=== PATIENT | male | born 1965 | race Caucasian/White ===

== ENCOUNTER → 2020-12-21 11:14 | Outpatient (CLI) | payer OTHER, SELFPAY ==
[2020-12-21 09:30] VITALS: BMI 22.0
--- NOTE | 2020-12-21 11:19 | CT_ITS ---
STUDY: CT CHEST WITH CONTRAST REASON FOR EXAM: Male, 55 years old. SCC of lung, concern for progression prior to XRT -- evaluate extent of disease RADIATION DOSAGE (If Supplied By Facility): CTDIvol = ( 10.73 ) mGy, DLP = ( 318.33 ) mGycm TECHNIQUE: Transaxial imaging was performed following intravenous administration of IV 100mL Isovue-370. Multiplanar coronal and sagittal images were reformatted. Individualized dose optimization techniques were used for this CT. COMPARISON: Comparison is made with prior outside examination dated 12/18/2020. FINDINGS: Prominent bilateral axillary lymph nodes more prominent on the left side. The largest lymph node in the left axilla measures 1.1 cm. There is volume loss and collapse of the right lower lobe. There is narrowing of the right intermediate stem bronchus due to the mass in the subcarinal region as well as in the right infrahilar region. There is hyperexpansion of the left lung. Normal heart and pericardium. There is evidence of a large soft tissue prominence in the subcarinal region extending into the right hilum and right infrahilar region. Normal hilar regions. Normal enhanced pulmonary arteries. Normal aorta arch and descending thoracic aorta. There are multi-level degenerative changes of the thoracic spine. There is a 1.5 cm cyst in the posterior lateral aspect of the left kidney. CT/Chest WITH Contrast IMPRESSION: Slight prominence of the axillary lymph nodes bilaterally worse on the left side. Mediastinal soft tissue prominence in the subcarinal region extending into the right hilar and infrahilar region with collapse of the right lower lobe and narrowing of the right intermediate stem bronchus. Electronically Signed: Malick Jaeger MD at 12:18 EDT , Service support ,
[2020-12-21 11:30] LABS: CREATININE FINGERSTICK 0.8 mg/dL (0.70-1.30); EGFR FINGERSTICK > 60.0000 mL/min (>60)
== END ==
PROVIDERS: Referring Provider Student in an Organized Health Care Education/Training Program; Visit Provider Student in an Organized Health Care Education/Training Program
DX: Z01.812 Encounter for preprocedural laboratory examination (principal); C34.91 Malignant neoplasm of unspecified part of right bronchus or lung
CPT/HCPCS: 71260; Q9967; A4216

== ENCOUNTER 2020-12-22 14:00 | Outpatient (RCR) | payer OTHER, SELFPAY ==
[2020-12-21 09:30] VITALS: BMI 22.0
[2020-12-22 09:14] VITALS: BMI 22.0
== END 2021-01-13 23:59 ==
LOC: NS 14:00
PROVIDERS: Visit Provider Student in an Organized Health Care Education/Training Program
DX: Z71.3 Dietary counseling and surveillance (principal); R63.4 Abnormal weight loss; R13.10 Dysphagia, unspecified; C34.91 Malignant neoplasm of unspecified part of right bronchus or lung; Z93.1 Gastrostomy status
CPT/HCPCS: 97802; 97803

== ENCOUNTER 2020-12-25 10:41 | Day surgery (SDC) | payer OTHER, SELFPAY ==
[2020-12-22 15:42] VITALS: BMI 21.9
[2020-12-24 09:27] VITALS: BMI 21.9
[2020-12-25] VITALS (8 sets, daily range): BP systolic 105–113; BP diastolic 51–74; PULSE 71–93; RESP 16; TEMP 36.4–36.8; O2SAT 92–95; BMI 21.4
--- NOTE | 2020-12-25 10:48 | HP.PCM_ITS ---
History and Physical Date of Admission: 12/25/20 Intake Vital Signs 12/22/20 09:13 12/22/20 09:14 Height 5 ft 9.5 in Weight: 153 lb BMI 22.2 22.0 BP 129/67 H Blood Pressure Location Rt brachial Position Sitting Respiration 18 Intake Visit Reasons: PORT PLACEMENT CONSULT Chief Complaint: port placement Legal Department Manager Required: No Is patient in pain?: No Allergies No Known Allergies Allergy (Verified 12/22/20 09:14) Medications lisinopril 10 mg tablet 10 mg PO DAILY 12/15/20 [History Confirmed 12/22/20] acetaminophen 500 mg/15 mL oral liquid 500 mg PO ONCE 12/17/20 [History Confirmed 12/22/20] lactose-reduced food with fiber 0.06 gram-1.5 kcal/mL oral liquid ml PO 12/17/20 [History Confirmed 12/22/20] oxycodone 5 mg/5 mL oral solution 5 mg PO Q4H PRN 12/17/20 [History Confirmed 12/22/20] PFSH Medical History Back pain Dysphagia Essential hypertension, benign Liver lesion, right lobe Pelvis fracture (~2015) Regional lymph node metastasis present Weight loss, abnormal Surgical History History of shoulder surgery (~1999) PEG (percutaneous endoscopic gastrostomy) status Family History Mother Diabetes Sister Uterine cancer Social History adopted: No housing: house Smoking Status: Former smoker Tobacco: How many years used: 30 second hand exposure: No alcohol intake: never seatbelt use: always HPI HPI HPI: LEYDI MAXWELL, is a 55 M who presents to the office today for left chest port placement. The patient has a right non-small cell carcinoma of the lung. Patient is about to undergo radiation as well as chemotherapy. ROS General General: Yes weight change and fatigue; No appetite, colon cancer, breast cancer or weakness HEENT HEENT: Yes difficulty swallowing; No eye injury, eye surgery, swollen glands or hoarseness Endo Endocrine: No thyroid disease, diabetes mellitus, thyroid cancer, Hair loss, heat intolerance or cold intolerance Skin Skin: No rash or changing moles Breast Breast: No left breast lump, right breast lump, nipple discharge, breast pain, abnormal mammogram, abnormal US or breast enlargement Musc Musculoskeletal: No back problems, arthritis, rheumatoid arthritis, gout or joint pain Cardio Cardiovascular: Yes high blood pressure; No murmur, pacemaker, heart disease, atrial fibrillation, heart attack, heart stent, palpitations, shortness of breat with exertion or chest pain Psych Psychiatric: No depression, anxiety or hearing voices Resp Respiratory: Yes shortness of breath, No sleep apnea, No cough, No COPD, No asthma, No emphysema and No wheezing Gastro Gastrointestinal: Yes abdominal pain, No nausea or vomiting, Yes diarrhea, No constipation, No blood in stool, No acid reflux, No hemorrhoids, No ulcers, No gallbladder problem and No black,tarry stools Stiven Hematologic: No blood thinners, No blood disorders, No bleeding, No anemia and No blood clots Neuro Neurologic: No system reviewed and no additional complaints, except as documented, No as per HPI, No abnormal gait, No abnormal hearing, No abnormal movements, No abnormal speech, No behavioral changes, No burning sensations, No confusion, No convulsions, No disequilibrium, No dizziness, No localized weakness, No frequent falls, No headache(s), No lack of coordination, No loss of vision, No memory loss, No numbness, No other visual disturbances, No radicular pain, No restless legs, No sensory deficit, No syncope, No tingling, No tremor(s), No weakness and No other Exam Const General: cooperative Orientation: alert and oriented x3 HENMS Head: normal to inspection Neck Neck: normal visual inspection and full ROM Chest Chest palpation & inspection: normal inspection of the chest Resp Effort & Inspection: normal respiratory effort Auscultation: clear to auscultation bilaterally Cardio Rate: regular rate Rhythm: regular rhythm GI Inspection: non-distended Palpation: soft and nontender Skin General: no rashes or lesions noted Neuro General: patient alert and patient oriented x3 Extrem General: full ROM Psych Appearance: grossly normal Mental Status: mental status grossly normal Assessment and Plan Assessment and Plan (1) Squamous cell carcinoma of right lung: Status: Acute (2) Encounter for insertion of venous access port: Status: Acute Plan - Dr. Adolfo Meyers MD: The patient requires port placement for chemotherapy. I discussed the left chest port placement due to the patient's right side tumor requiring radiation. I discussed the port placement in detail with the patient. I discussed the risks of bleeding, infection, pneumothorax, line infection or DVT. The patient understands the risks and is willing to proceed with port placement. Adolfo Meyers MD Pager: [facility] [address] [place] [address], [address] [place] [address] Office: I have re-examined the patient. There are no clinical changes since date of exam.
[2020-12-25] MEDS: Lactated Ringers 1,000 ML 100 ML IV (11:58)
[2020-12-25] MEDS: Cefazolin 2 GM in 0.9% Normal Saline 100 ML IV (12:30)
[2020-12-25] MEDS: Bupiv/Epi 0.25% 30 ML Vial (12:46)
--- NOTE | 2020-12-25 13:16 | RAD_ITS ---
STUDY: X-RAY CHEST REASON FOR EXAM: Male, 55 years old. Line placement -- in pacu TECHNIQUE: Single AP portable view of the chest. COMPARISON: None. FINDINGS: The left-sided jefferson catheter has been placed. The tip is at the junction of the superior vena cava and right atrium. Mild increased markings at the right lung base. Findings suggestive of volume loss in the right lower lobe. There is no demonstrated pleural abnormality. Normal size heart. Normal mediastinum and kait. Normal visualized pulmonary arteries. There is atherosclerotic tortuosity of the aortic arch and descending thoracic aorta. Normal visualized thoracic spine. Normal visualized ribs, clavicles, and shoulders. There is no demonstrated abnormality of the visualized soft tissue structures of the upper abdomen. RAD/CXR for Line Placement IMPRESSION: The tip of the left jefferson catheter is at the junction of the superior vena cava and right atrium. Findings suggestive of volume loss in the right lower lobe. Electronically Signed: Malick Jaeger MD at 13:59 EDT , Service support ,
--- NOTE | 2020-12-25 13:16 | PCM.OPRPT ---
Problems Associated Problem List Diagnoses (1) Malignant neoplasm of lower lobe, right bronchus or lung: (2) Encounter for insertion of venous access port: Report of Operation Date of Procedure: 12/25/20 Pre-Operative Diagnosis: Need for vascular access port due to lung cancer Post-Operative Diagnosis: Same Surgery/Procedure Performed:: Ultrasound and fluoroscopy guided left chest port placement utilizing left IJ Description of Procedure: After obtaining informed consent patient was brought back to the operating room MAC anesthesia was induced and the left chest and neck were prepped in normal sterile fashion. Ultrasound was used to evaluate both IJs and the left IJ was selected. Next, using a needle, the left IJ was accessed and a guidewire was passed on into the superior vena cava under fluoroscopy guidance. A small incision was made over the puncture site and the dilator introducer was placed over the guidewire. Next this was capped and the pocket was made for the port. 1% lidocaine with epinephrine was injected in the proposed port site. An incision was made with scalpel. Electrocautery was used to make a pocket under the skin and subcutaneous tissue. Hemostasis was obtained. Next, the catheter was tunneled up to the neck incision site and placed through the introducer. The peel-away introducer was removed and the position of the catheter was confirmed on fluoroscopy. Next, the catheter was trimmed and attached to the port with the locking device. Interrupted 2-0 Vicryl sutures were used to anchor the port to the chest wall and then the port was placed inside the pocket. The pocket was then flushed with saline and the port irrigated with saline. There was good blood return and the port flushed easily. Next, heparin was injected into the port. The skin was closed with subcutaneous interrupted 3-0 Vicryl sutures. A single 3-0 Vicryl sutures placed under the skin at the neck incision site. Steri-Strips were placed as well as op sites. Patient tolerated procedure well, was taken to PACU in stable condition. Chest x-ray will be obtained. Grafts/Implants Used: 8 Cam[place]onian PowerPort Admit VTE Documentation VTE Mechan Device Prophylaxis: SCD's
--- NOTE | 2020-12-25 13:17 | EX.PCM.DISCH ---
Discharge Instructions Procedure Port-A-Cath Diet Discharge Diet: Light diet - advance as tolerated (Pain medication may cause nausea. You should typically eat light foods as you take your pain medication.) Activity Discharge Activity: Return to Normal Activity and May Shower (with your bandage in place in 1-2 days after surgery. DO NOT SHOWER WHEN YOUR PORT IS ACCESSED.) Dressing / Incision Call your doctor if your incision/area has: Continuous Slow Oozing, Sudden Increased Bleeding, Increased Pain/ Swelling, Increased Redness, Foul Smelling Discharge and Swelling at the incision site Call your doctor if you observe: Fever of 101 or Higher Remove Dressing in: 2 days Cleanse incision/area with: Soap & Water Follow Up Care Please Follow Up With: Adolfo Meyers MD When: as needed or if there are any issues. [phone] Test Results: Test results from this visit will be discussed in further detail at your follow-up appointment, if applicable. Discharge Plan Admission Attending Provider: Adolfo Meyers Discharge Orders/Prescriptions Prescriptions: No Action lisinopril 10 mg tablet 10 mg PO DAILY RF: 0 oxycodone 5 mg/5 mL solution 5 mg PO Q4H PRN (Reason: Pain) RF: 0 acetaminophen 500 mg/15 mL liquid 500 mg PO ONCE PRN (Reason: Pain) RF: 0 Jevity 1.5 Tesfaye 0.06 gram-1.5 kcal/mL liquid 290 ml PO .5 TIMES DAILY RF: 0 prochlorperazine maleate 10 mg tablet 10 mg PO Q6H PRN (Reason: nausea and vomiting) Qty: 30 RF: 2 ondansetron 8 mg tablet,disintegrating 8 mg PO Q8H PRN (Reason: nausea and vomiting) Qty: 30 RF: 2 lidocaine-prilocaine 2.5-2.5 % cream 1 applic topical ONCE PRN (Reason: port access ) 30 Days Qty: 30 RF: 2 Referrals / Follow Up: LAYLA DUMAS [Other] Disposition Disposition (needs filled in before D/C Order can be placed): Home, self care
== END 2020-12-25 14:20 | disposition home or self-care (01) ==
LOC: SDC 10:43 → AC 10:45
PROVIDERS: Referring Provider Surgery; Visit Provider Surgery
PROC: (CPT 36561; principal; 2020-12-25 12:05)
DX: Z45.2 Encounter for adjustment and management of vascular access device (principal); C34.31 Malignant neoplasm of lower lobe, right bronchus or lung; I10 Essential (primary) hypertension; Z87.891 Personal history of nicotine dependence
CPT/HCPCS: 36561; 71045; 77001; J7120; C1788

== ENCOUNTER 2021-02-16 12:30 | Outpatient (RCR) | payer OTHER, SELFPAY ==
[2021-01-14 09:41] VITALS: BMI 22.0
[2021-01-21 09:50] VITALS: BMI 21.2
--- NOTE | 2021-01-26 17:36 | HP.SP.AD_ITS ---
History - History Date of Eval: 01/26/21 Medical Diagnosis (from RX): Malignant neoplasm of lower lobe, right bronchus or lung (C34.31) Date of Onset of Diagnosis: 11/30/2020 Previous speech therapy: No Other Relevant Medical History/Diagnoses/Surgery: PMH: Acid reflux, Back pain, Chest pain, Collapsed lung, Difficulty chewing, Dysphagia, HTN, Former smoker, Liver lesion right lobe, Migraine headache, Pelvis fracture (~2015), Port-A-Cath in place, Regional lymph node metastasis present, Wears glasses, Weight loss abnormal, History of shoulder surgery (~1999), PEG status. 55-year-old ex- smoker presenting with progressive dysphagia and 30-pound weight loss. PET/CT on 11/30/2020 demonstrate hypermetabolic right lower lobe mass with hypermetabolic mediastinal and right hilar lymph node conglomeration. Right middle lobe bronchus obstruction/occlusion noted. 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 The patient began chemoradiation on 12/31/20 and will continue radiation through 02/15/21 and chemo through 02/11/21. He then will have a month break before proceeding with more chemotherapy. The patient stated that at the start of the year he began to have swallowing difficulty with dry textures (e.g. donut). His swallow became progressively worse. On 11/29/2020 he was admitted to the [facility] and could only swallow liquid medications and small pills. He was on TPN in the meantime. He had PEG tube placed 12/09/2020. He began chemoradiation 12/31/20. He reported some of his treatments have been delayed due to complications, including a lung collapse. He had difficulty managing secretions, feeling that he had retention in his thoracic esophagus. He experienced dysgeusia during chemoradiation. He has begun consuming regular textures for the past week and reports good tolera nce at this time. He is currently consuming 2-4 cartons via PEG daily to supplement his po intake. Smoking Status: Former smoker Hx Smoking Cessation Date: 10/23/20 Hx Tobacco Use: Yes - Pain Is pain an issue with your current prescribed condition?: No - Personal Occupation: Retired - [employer]. Right Hearing Abillity: Normal Left Hearing Abillity: Normal Visual Assistive Devices: Glasses Patient Allergies - Allergies Allergies No Known Allergies Allergy (Verified 07/08/21 09:22) Subjective Dysphagia - Symptoms Reported Symptoms/Problems with: Difficulty Swallowing Solids, Difficulty Swallowing Liquids, Food gets stuck, Weight Loss Objective Dysphagia - Administered by Administered by: Self - Thin Liquids Administred via: Cup Oral Holding: No Comments: Pt consumed single and continuous sips with intermittent use of double swallow, no overt s/s of aspiration, no changes in vocal quality post deglutition. - Regular Patient Report: No complaints of food stuck in throat or esophagus. No discomfort reported. Comments: Trialed bites of soft cookie and regular textured cookie. The pt demonstrated adequate and timely mastication, intermittent use of doubel swallow, mildly reduced laryngeal elevation, no overt s/s of aspiration. - Results Swallowing Within Normal Limits: No Swallowing Diagnosis: Pharyngoesophageal Phase Dysphagia Severity: Mild Objective Cancer - Functional Oral Intake Scale Tube dependent with consistent oral intake of food or liquid: Level 3 Other Impressions - Comments Diet Recommendations -: Will recommend the patient for Regular Easy to Chew / Thin liquids with the following aspiration precautions: alternate liquids and solids, double swallows if sensation of retention, small bites/sips, upright 90 degrees during meals and 30-60 min after meals. Patient verbalized understanding of strategies and PACKAGING SALES CONSULTANT provided the patient written handout of recommendations. Cranial Nerve Examination -: CRANIAL NERVE EXAMINATION: TRIGEMINAL NERVE (V) ? impaired; mildly decreased hyolaryngeal elevation upon palpation. Additionally, patient reports mildly diminished taste, as well as dysgeusia. FACIAL NERVE (VII) ? no clinical abnormalities observed. VAGUS NERVE (X) ? no clinical abnormalities observed. HYPOGLOSSAL NERVE (XII) ? no clinical abnormalities observed. Swallowing Scales -: Performance Status Scale for Head and Neck Cancer Patients: Normalcy of Diet ? 0 ? Nonoral feeding (tube fed) - however, the patient has recently begun consuming Regular textures / Thin liquids and supplementing oral intake with tube feedings. Public Eating ? 50 - Eats in the presence of selected persons in selected places. Understandability of Speech ? 100 ? Always understandable. Plan - Plan Plan: Will recommend the patient for skilled outpatient dysphagia therapy to address pharyngoesophageal dysphagia related to lung cancer and current chemoradiation. Will provide the patient further education re: prophylactic pharyngeal exercise program, diet texture recommendations, aspiration precautions, and compensatory strategies to decrease risk for aspiration. Additionally, will provide ongoing assessment of diet tolerance during and post radiation treatment. The patient is planned to participate in MBS study to further assess risk for silent aspiration and provided further recommendations regarding least restrictive diet and compensatory strategies to decrease risk for aspiration. Without skilled ST services, the patient is at risk for aspiration, weight loss, and malnutrition. - Recommendations MBS: Yes Treatment Warranted: Yes - Frequency Frequency: 1X every 3 weeks Duration: 12 Months - Prognosis Prognosis: Good - Goals that are Established: Determination:: Goals will be added/modified as deemed necessary and appropriate. Therapy will be discontinued when results of re-evaluation elizabeth roslyn therapy is no longer needed or lack of progress has been documented. - Goal #1-5 Goal #1: The patient will consume least restrictive diet textures without overt s/s of aspiration with 90% accuracy with minimal verbal cues for use of compensatory strategies to decrease risk for aspiration. Goal #2: The patient will complete pharyngeal exercises (Effortful swallow, Alina) X10 repetitions, 3-5X daily independently to improve and maintain strength, ROM, and coordination of swallowing mechanism. Goal #3: The patient will participate in MBS study to objectively assess swallow function and provide recommendations for safest, least restrictive diet and compensatory strategies to reduce risk for aspiration. Education - Patient has Indicated that the Following Identified Educational Needs: None The Patient has indicated that they have no educational or learning abilities that may effect their care.: Yes - Patient Instruction Patient Education: Treatment Plan, Goals, Diet Level, Home Exercise Program Other Education: Education provided regarding the potential impacts of radiation treatment on swallow function during and post treatment, including dysgeusia, fibrosis, and disuse atrophy which may result in restricted range of motion and weakness of swallowing mechanism. Discussed impaired swallowing and increased risk for aspiration, aspiration related illnesses, weight loss, and malnutrition. Provided the patient a handout and demonstration of prophylactic oropharyngeal exercise program. The patient provided return demonstration with both exercises (Alina and effortful swallow) with minimal verbal cues and demonstration. The patient would benefit from continued training to monitor proper execution of exercises and encourage strict adherence to exercise program. Person Taught: Patient Teaching Method: Discussion, Demonstration, Handout Response to teaching: Return demonstration, Verbalize understanding
--- NOTE | 2021-08-20 13:14 | HP.SP.DC_ITS ---
ST Discharge Summary - Discharged: Discharge: The patient participated in dysphagia evaluation 01/26/2021 with POC initiated to address mild pharyngoesophageal phase dysphagia. Pt attended one follow up session and did not have recommended MBS study scheduled at that time. He had been tolerating Regular Easy to Chew Textures / Thin Liquids at that time. He had not returned for additional speech therapy visits. On this date, [facility] spoke with the patient via telephone to follow up. Patient currently hospitalized for esophageal fistula and potentially being transferred for further care. [facility] will plan to discharge patient from outpatient speech therapy at this time, as his complications for odynophagia are due to esophageal fistula s/p radiation. Would recommend reconsult for speech therapy in the future following intervention for esophageal fistula if difficulty returning to oral intake.
== END 2021-02-16 19:00 | disposition home or self-care (01) ==
LOC: SP 12:30
PROVIDERS: Referring Provider Student in an Organized Health Care Education/Training Program; Visit Provider Student in an Organized Health Care Education/Training Program
DX: R13.10 Dysphagia, unspecified (principal); C34.31 Malignant neoplasm of lower lobe, right bronchus or lung
CPT/HCPCS: 92526; 92610

== ENCOUNTER → 2021-05-06 10:53 | Outpatient (CLI) | payer OTHER, SELFPAY ==
--- NOTE | 2021-05-06 10:59 | MRI_ITS ---
STUDY: MRI BRAIN WITH AND WITHOUT CONTRAST REASON FOR EXAM: Male, 55 years old. RESTAGING NSCLC TECHNIQUE: Standardized multiplanar fat and water weighted pulse sequences were obtained. IV 13mL DOTAREM was administered for the contrast portion of the examination. COMPARISON: None. FINDINGS: Normal size of the ventricles and extra-axial spaces for the patient''s age. Normal white matter tracts of the supratentorial brain. There is a single 3 mm FLAIR lesion in the subcortical right frontal lobe white matter, not well visualized on any other sequences, potentially artifactual. There is otherwise normal signal throughout the brain. Normal bilateral basal ganglia. Normal thalami. There is no extra-axial fluid accumulation. Normal flow voids within the major intracranial circulation suggesting patency by spin echo criteria. Normal venous enhancement. There is no enhancing intra-axial or extra-axial abnormality. Normal sella turcica, pituitary gland, infundibular stalk, optic chiasm and hypothalamus. Normal tectal plate and pineal gland. Normal midbrain, marisol and medulla. Normal cerebellum. Normal basal cisterns. Normal bilateral temporal bones. Normal bilateral internal auditory canals. There is metal artifact seen in the region of the superficial soft tissues along the superior margin of the left orbital rim. This obscures visualization of portion of the left globe which is otherwise normal in appearance. Normal visualized paranasal sinuses. Normal calvarium and skull base. Normal visualized soft tissue structures. Normal visualized upper cervical spine. MRI/Brain W/WO Contrast IMPRESSION: Isolated 3 mm FLAIR bright subcortical focus, not visible on any other sequences and suspected to be artifactual. No enhancing brain lesion and no evidence of metastatic lung cancer to the brain. Superficial metal artifact along the superior anterior margin of the globe of uncertain etiology. Consider correlation with orbital x-rays to better characterize apparent foreign body. Electronically Signed: Mayito Zaragoza DO at 21:06 EDT Tel , Service support ,
[2021-05-06] MEDS: 0.9% Saline Lock 10 ML Syringe IV (12:15)
== END ==
PROVIDERS: Referring Provider Internal Medicine Hematology & Oncology; Visit Provider Internal Medicine Hematology & Oncology
DX: C34.31 Malignant neoplasm of lower lobe, right bronchus or lung (principal); C77.9 Secondary and unspecified malignant neoplasm of lymph node, unspecified
CPT/HCPCS: 70553; A9575

== ENCOUNTER → 2021-05-13 14:09 | Outpatient (CLI) | payer OTHER, SELFPAY ==
--- NOTE | 2021-05-13 14:11 | CT_ITS ---
STUDY: CT CHEST, ABDOMEN T PELVIS WITH CONTRAST REASON FOR EXAM: Male, 55 years old. Restaging following completion of definitive therapy for lung cancer. RADIATION DOSAGE (If Supplied By Facility): CTDIvol = ( 10.17 ) mGy, DLP = ( 821.36 ) mGycm TECHNIQUE: Transaxial imaging was performed following intravenous administration of IV 100mL Isovue-300. Individualized dose optimization techniques were used for this CT. COMPARISON: Comparison is made with a prior CT scan of the thorax dated 12/21/2020. FINDINGS: A left-sided jefferson catheter seen with the tip in the superior vena cava. CHEST Volume loss of the right hemithorax. New left pleural effusion. The previously seen consolidative right lower lobe has improved. There is evidence of bronchiectasis and airspace disease along the medial aspect of the right upper lobe as well as in the right lower lobe most likely secondary to post radiation fibrosis/pneumonitis. Normal heart and pericardium. The previously seen mediastinal and hilar adenopathy and almost completely resolved. Emphysematous changes are seen in the left hemithorax. Normal unenhanced pulmonary arteries. There is atherosclerotic tortuosity of the aortic arch and descending thoracic aorta. There are multi-level degenerative changes of the thoracic spine. ABDOMEN There is decreased attenuation of the liver consistent with steatosis. Normal gallbladder and extrahepatic biliary system. Normal spleen. Normal pancreas. Normal bilateral adrenal glands. Stable bilateral renal cysts. Normal visualized stomach. Normal small intestine. There are multiple colonic diverticula consistent with diverticulosis. The appendix is visualized and appears normal. Normal abdominal aorta. Normal inferior vena cava. Normal retroperitoneum. Normal abdominal wall. There are diffuse degenerative changes of the visualized lumbar spine. PELVIS Normal urinary bladder. Prostatic calcifications. CT/CT Chest, Abd, Pel w/Contrast IMPRESSION: Almost complete clearing of the mediastinal and hilar lymphadenopathy. Findings suggestive of postoperative radiation/pneumonitis in the right hemithorax with right pleural effusion and bronchiectasis and volume loss in the right lower lobe. Electronically Signed: Malick Jaeger MD at 15:38 EDT , Service support ,
[2021-05-13] MEDS: 0.9% Saline Lock 10 ML Syringe IV (14:40)
== END ==
PROVIDERS: Referring Provider Nurse Practitioner Family; Visit Provider Nurse Practitioner Family
DX: C34.31 Malignant neoplasm of lower lobe, right bronchus or lung (principal)
CPT/HCPCS: 71260; 74177; Q9967; A4216

== ENCOUNTER → 2021-07-01 13:32 | Outpatient (CLI) | payer OTHER, SELFPAY ==
--- NOTE | 2021-07-01 13:35 | MRI_ITS ---
STUDY: MRI BRAIN WITH AND WITHOUT CONTRAST REASON FOR EXAM: Male, 56 years old. restaging lung cancer, FLAIR abrnomality on prior -- please compare with prior, new headaches TECHNIQUE: Standardized multiplanar fat and water weighted pulse sequences were obtained. IV 14cc dotarem was administered for the contrast portion of the examination. COMPARISON: 05/06/2021 FINDINGS: Normal size of the ventricles and extra-axial spaces for the patient''s age. Normal white matter tracts of the supratentorial brain. There is no change in the single focus of hyperintensity in the subcortical white matter of the anterior right parietal lobe likely consistent with microangiopathic gliosis. This area demonstrates no contrast enhancement. There is no evidence for recent intracranial ischemia or other cause of cytotoxic edema on diffusion weighted imaging (DWI). Normal T2* images of the brain without demonstrated susceptibility artifact. There is no demonstrated hemosiderin stain. Normal bilateral basal ganglia. Normal thalami. There is no extra-axial fluid accumulation. Normal flow voids within the major intracranial circulation suggesting patency by spin echo criteria. Normal venous enhancement. There is no enhancing intra-axial or extra-axial abnormality. Normal sella turcica, pituitary gland, infundibular stalk, optic chiasm and hypothalamus. Normal tectal plate and pineal gland. Normal midbrain, marisol and medulla. Normal cerebellum. Normal basal cisterns. Normal bilateral temporal bones. Normal bilateral internal auditory canals. No demonstrated orbital abnormality, within the constraints of a routine brain study. Normal visualized paranasal sinuses. Normal calvarium and skull base. Normal visualized soft tissue structures. Normal visualized upper cervical spine. MRI/Brain W/WO Contrast IMPRESSION: No MR evidence of metastatic disease. Electronically Signed: Segundo Shirley MD at 15:37 EST Tel , Service support ,
--- NOTE | 2021-07-01 13:40 | RAD_ITS ---
STUDY: X-RAY - ORBITS REASON FOR EXAM: Male, 56 years old. PRE MRI TECHNIQUE: 2 view(s) of the orbits were obtained. COMPARISON: None. FINDINGS: Tiny metallic fragments are seen in the region of the left eyelid. Normal visualized facial bones. Normal paranasal sinuses. The soft tissue structures are unremarkable. RAD/Orbits for Foreign Body IMPRESSION: Tiny metallic fragments seen overlying the left hilum. Electronically Signed: Malick Jaeger MD at 14:08 EST , Service support ,
[2021-07-01] MEDS: 0.9% Saline Lock 10 ML Syringe IV (15:05)
== END ==
PROVIDERS: Referring Provider Student in an Organized Health Care Education/Training Program; Visit Provider Student in an Organized Health Care Education/Training Program
DX: C34.31 Malignant neoplasm of lower lobe, right bronchus or lung (principal)
CPT/HCPCS: 36591; 70030; 70553; 80053; 83735; 84100; 84443; 85025; 96413; A9575; J7050; A4216; J9173

== ENCOUNTER 2021-07-23 08:44 | Outpatient (CLI) | payer BC, SELFPAY ==
--- NOTE | 2021-07-23 08:51 | NM_ITS ---
CLINICAL: 56-year-old male with history of carcinoma of the lung with current complaint of right upper back pain. WHOLE BODY 99m Tc MDP RADIONUCLIDE BONE SCINTIGRAPHY COMPARISON: None available FINDINGS: Following the intravenous administration of 26.2 mCi of 99m Tc MDP, whole body bone images reveal: 1. Increased radiopharmaceutical concentration is demonstrated in the left mid humeral diaphysis. 2. Facilitated uptake is visualized in the acromioclavicular and sternoclavicular compartments of both shoulders, patellofemoral compartments of both knees, medial tibial compartment of the left knee, ankles bilaterally. 3. The remaining skeletal structures are scintigraphically unremarkable with normal-appearing renal images and urinary bladder activity identified. NM/Bone Scan Whole Body IMPRESSION: 1. The increase in tracer distribution defined in the left mid humeral diaphysis is most consistent with trauma-fracture. Plain film radiography correlation is recommended in the setting of known lung carcinoma. 2. Degenerative arthritis appears expressed in the bilateral shoulders and knees, right and left ankles. 3. No other definitive scintigraphic abnormalities are visualized. There is no typical scintigraphic evidence of diffuse axial skeletal metastatic disease on the current examination. Electronically Signed: Segundo Wen DO at 21:32 EST Tel , Service support ,
== END 2021-07-23 23:59 | disposition short-term general hospital (02) ==
PROVIDERS: Referring Provider Nurse Practitioner Family; Visit Provider Nurse Practitioner Family
DX: C34.31 Malignant neoplasm of lower lobe, right bronchus or lung (principal); G44.89 Other headache syndrome
CPT/HCPCS: 78306; A9503

== ENCOUNTER 2021-07-26 13:42 | Outpatient (CLI) | payer BC, SELFPAY ==
--- NOTE | 2021-07-26 13:49 | CT_ITS ---
STUDY: CT CHEST T ABDOMEN WITH CONTRAST REASON FOR EXAM: Male, 56 years old. NSCLC. Follow-up examination. RADIATION DOSAGE (If Supplied By Facility): CTDIvol = ( 11.29 ) mGy, DLP = ( 655.20 ) mGycm TECHNIQUE: Transaxial imaging was performed following intravenous administration of Oral and amp; IV Readi-CAT and amp; 100mL Isovue-370. Individualized dose optimization techniques were used for this CT. COMPARISON: Comparison is made with prior examination 05/13/2021. FINDINGS: CHEST A left-sided portacatheter is seen with the tip in the superior vena cava. Stable small benign-appearing bilateral axillary lymph nodes. Stable volume loss in the left hemithorax with persistent small right pleural effusion. Once again, there is evidence of bronchiectasis with cystic changes in the medial aspect of the right upper lobe and right middle lobes as well as in the right lower lobe. There has been improvement as compared to prior study. This may represent post radiation fibrosis and resolving postradiation pneumonitis. No new mass lesion is seen. The left hemithorax remains unremarkable. Normal heart and pericardium. Persistent soft tissue thickening with a small amount of air in the subcarinal region. Normal hilar regions. Normal unenhanced pulmonary arteries. Normal aorta arch and descending thoracic aorta. There is demineralization of the thoracic spine. ABDOMEN There is decreased attenuation of the liver consistent with steatosis. Normal gallbladder and extrahepatic biliary system. Normal spleen. There is diffuse atrophy of the pancreas. Normal bilateral adrenal glands. Stable small bilateral renal cysts. Normal visualized stomach. Normal small intestine. There are multiple colonic diverticula consistent with diverticulosis. The appendix is visualized and appears normal. There is scattered atherosclerotic calcification of the abdominal aorta, without a demonstrated aneurysm. Normal inferior vena cava. Normal retroperitoneum. Normal abdominal wall. There are degenerative changes of the visualized lumbar spine. CT/CT Chest AND Abd W/ Contrast IMPRESSION: Persistent right pleural effusion with volume loss in the right hemithorax. 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 Stable bilateral renal cysts. Electronically Signed: Malick Jaeger MD at 14:25 EST , Service support ,
[2021-07-26] MEDS: 0.9% Saline Lock 10 ML Syringe IV (14:11)
== END 2021-07-26 23:59 | disposition short-term general hospital (02) ==
PROVIDERS: Referring Provider Nurse Practitioner Family; Visit Provider Nurse Practitioner Family
DX: C34.31 Malignant neoplasm of lower lobe, right bronchus or lung (principal)
CPT/HCPCS: 71260; 74160; Q9967; A4216

== ENCOUNTER 2021-08-20 09:34 | Inpatient (IN) | payer BC, SELFPAY ==
[2021-08-20] VITALS (13 sets, daily range): BP systolic 90–148; BP diastolic 56–77; PULSE 88–140; RESP 16–18; TEMP 36.1–38.4; O2SAT 91–95; BMI 21.2; BMI 21.5
[2021-08-20] MEDS: Lactated Ringers 1,000 ML 15 ML IV (06:23)
--- NOTE | 2021-08-20 06:23 | EKG12_ITS ---
Test Reason : Blood Pressure : / mmHG Vent. Rate : 127 BPM Atrial Rate : 127 BPM P-R Int : 116 ms QRS Dur : 080 ms QT Int : 268 ms P-R-T Axes : 048 020 051 degrees QTc Int : 389 ms Sinus tachycardia Otherwise normal ECG Confirmed by CYRUS ARNOLD, IAN ([id number]), copy editor LEXI QUINTEROS ([id number]) on 08/25/2021 9:39:14 AM Referred By: No Primary Care Physician Confirmed By:IAN BRIDGES MD
--- NOTE | 2021-08-20 07:04 | PCM.HP.BLA ---
History and Physical Date of Admission: 08/20/21 LEYDI MAXWELL, is a 56 M who presents to the office today for the evaluation of dysphagia and odynophagia. Mid to the last year in 2020 he was diagnosed with a mediastinal mass with right lower lobe of the lung obstruction. There was also an indeterminate mass in the left lobe of the liver. He had an EGD with EUS that showed extrinsic compression of the upper third of the esophagus in the middle third with significant narrowing. An FNA was performed on enlarged lymph node. He was positive for squamous cell carcinoma. He underwent PEG tube placement followed by chemotherapy and radiation. Currently he is on immune he is has been having worsening esophageal dysphagia with odynophagia. He was started on fluconazole recently and he was given Magic mouthwash but he is not having any improvement in his symptoms. He has lost approximately 12 pounds. He does not have any pain. He denies any nausea. He denies any chest pain or shortness of breath. Therefore he was referred by Dr. Davenport, oncology for evaluation of with pain mid chest which radiates into his back, pain with food, pills and liquids. When pain is present he feels pain in his head with swallowing. Decreased appetite related to fear of pain. Onset of symptoms . Empirical treatment of Diflucan treatment (started 08.11.21) for possible fungal esophagitis suspected r/t high dose steroid administration for radiation pneumonitis . New immunotherapy drug (Durvalumab) started about six weeks ago but is currently on hold because of new onset headache (onset R side, seeing neurology soon), dysphagia and fatigue. PEG placement previously with inflamed lymph nodes during cancer treatment . PEG removed due to increased appetite and weight returned to normal. He has used magic mouthwash in the past, however when using this he is worried about swallowing function/aspiration with intake when using this. CT chest/abd with contrast for cancer evaluation found liver echogenicity consistent with steatosis. Colonic diverticula. Abdominal aorta calcification. Pancreas is atrophied. Bilateral renal cysts, stable. Gallbladder, extrahepatic biliary system, spleen, adrenal glands, stomach, small intestine, appendix all appear normal. Additional medical history includes lung cancer with lymph metastasis with chemotherapy and radiation treatment, liver lesion of benign etiology ROS Const Constitutional: No anorexia, fatigue, fever(s), weight change or sleep problems Eyes Eyes: No change in vision ENT ENT: No abnormal hearing, difficulty swallowing, mouth lesions, tongue swelling or throat swelling Resp Respiratory: No cough or shortness of breath Cardio Cardiology: No chest pain at rest, chest pain with exertion, shortness of breath or dyspnea on exertion Gastro GI: No difficulty swallowing Genitourinary Male: No difficulty urinating or burning urination Musc Musculoskeletal: No joint pain, joint swelling, muscle weakness or decreased muscle mass Skin Skin: No hair loss in leg, yellowing of the eye, itchy eyes, rash, skin ulcer or skin swelling Neuro Neurology: No abnormal hearing, abnormal movements, confusion, unsteady gait/balance or memory loss Psych Psychiatric: No anxiety, No confusion and No memory loss Endo Endocrine: No fatigue or weight change Aller/Imm Allergy/Immunologic: No itchy eyes, throat swelling or tongue swelling Stiven/Lymp Hematologic/Lymphatic: No easy bleeding, easy bruising or enlarged lymph nodes Exam Const General: cooperative and comfortable Nutritional Appearance: average body habitus and well nourished HENMT Head: normal to inspection Ears: hearing grossly normal bilaterally Nose: external nose normal Face and sinus: normal facial exam Mouth: oral mucosae normal Throat: posterior oropharynx normal Eyes General: appearance normal, both eyes and all related structures Neck Neck: normal visual inspection Chest Chest palpation & inspection: normal inspection of the chest and normal palpation of entire chest wall Resp Effort & Inspection: normal respiratory effort Auscultation: Bilateral: Clear to Auscultation Cardio Palpation: normal PMI Rate: regular rate Rhythm: regular rhythm GI Inspection: normal to inspection Auscultation: normal bowel sounds Percussion: normal to percussion Palpation: no hepatosplenomegaly Skin General: no rashes or lesions noted Neuro General: patient alert Extrem General: normal to inspection Psych Affect: normal affect Quality Reporting Tobacco Screening ([facility] 138) Smoking Status: Former smoker Assessment and Plan Assessment and Plan (1) Esophageal stricture: Status: Acute Plan - Dr. Allison Friend, DO: Patient will go undergo evaluation to see if there is any radiation-induced injury to the esophagus. He will also well evaluation to see if there is any infectious etiology in the esophagus. There are associations that are structural in the may require stenting in the future. However after looking at his CAT scans with the patient I do not think he needs it at this time. InsertI have re-examined the patient. There are no clinical changes since date of exam.
--- NOTE | 2021-08-20 07:36 | OP.EGD_ITS ---
Patient Name: Blair Munoz Procedure Date: 08/20/2021 6:20 AM Date of : 1965 Age: 56 Procedure: Upper GI endoscopy Indications: Dysphagia Providers: Keegan Orozco DO Referring MD: No Primary Care Physician Medicines: See the Anesthesia note for documentation of the administered medications Patient Profile: This is a 56 year old male. Refer to note in patient chart for documentation of history and physical. Patient has symptoms of acute chest pain, chronic cough and acute dysphagia. Complications: No immediate complications. Procedure: Pre-Anesthesia Assessment: - Prior to the procedure, a History and Physical was performed, and patient medications and allergies were reviewed. The patient is competent. The risks and benefits of the procedure and the sedation options and risks were discussed with the patient. All questions were answered and informed consent was obtained. Patient identification and proposed procedure were verified by the physician in the pre-procedure area. Mental Status Examination: alert and oriented. Airway Examination: normal oropharyngeal airway and neck mobility. Respiratory Examination: clear to auscultation. CV Examination: normal. ASA Grade Assessment: II - A patient with mild systemic disease. After reviewing the risks and benefits, the patient was deemed in satisfactory condition to undergo the procedure. The anesthesia plan was to use moderate sedation / analgesia (conscious sedation). Immediately prior to administration of medications, the patient was re-assessed for adequacy to receive sedatives. The heart rate, respiratory rate, oxygen saturations, blood pressure, adequacy of pulmonary ventilation, and response to care were monitored throughout the procedure. The physical status of the patient was re-assessed after the procedure. After obtaining informed consent, the endoscope was passed under direct vision. Throughout the procedure, the patient's blood pressure, pulse, and oxygen saturations were monitored continuously. The Endoscope was introduced through the mouth, and advanced to the second part of duodenum. The upper GI endoscopy was accomplished without difficulty. The patient tolerated the procedure well. Moderate Sedation: Moderate (conscious) sedation was administered by the endoscopy nurse and supervised by the endoscopist. The following parameters were monitored: oxygen saturation, heart rate, blood pressure, and response to care. Total physician intraservice time was 15 minutes. Scope In: 7:17:52 AM Scope Out: 7:22:39 AM Total Procedure Duration Time 0 hours 4 minutes 47 seconds Findings: A mucosal defect suspicious for perforation was found 30 to 33 cm from the incisors. This defect was large. Adjacent mucosal findings include ulceration. There appeared to be a lot of radiation-induced injury. There was clear communication with the mediastinum and lung parenchyma was seen. The entire examined stomach was normal. The second portion of the duodenum was normal. Impression: - A mucosal defect suspicious for perforation was found in the esophagus. The adjacent mucosa showed ulceration. - Normal stomach. - Normal second portion of the duodenum. - No specimens collected. Recommendation: - Transfer patient to another hospital. - The patient has taken no previous anticoagulant or antiplatelet agents and therefore does not require instructions for their resumption. Procedure Code(s): --- Professional --- 13583, Esophagogastroduodenoscopy, flexible, transoral; diagnostic, including collection of specimen(s) by brushing or washing, when performed (separate procedure) 29674, 59, Moderate sedation services provided by the same physician or other qualified health career and transition teacher performing the diagnostic or therapeutic service that the sedation supports, requiring the presence of an independent trained observer to assist in the monitoring of the patient's level of consciousness and physiological status; initial 15 minutes of intraservice time, patient age 5 years or older CPT copyright 2017 [employer]. All rights reserved. The codes documented in this report are preliminary and upon validation scientist review may be revised to meet current compliance requirements. Keegan Orozco DO 08/20/2021 7:36:30 AM This report has been signed electronically. Number of Addenda: 1 Note Initiated On: 08/20/2021 6:20 AM Addendum Number: 1 Addendum Date: 04/04/2022 6:54:31 AM MAC was used for sedation during this procedure. Keegan Orozco DO 04/04/2022 6:54:35 AM This report has been signed electronically.
--- NOTE | 2021-08-20 07:37 | OP.CCLET_ITS ---
04/04/2022 No Primary Care Physician Re : Upper GI endoscopy procedure for Blair Munoz [facility] Care Physician This procedure was performed on Friday, August 20, 2021. My impressions and recommendations are as follows: Impressions : - A mucosal defect suspicious for perforation was found in the esophagus. The adjacent mucosa showed ulceration. - Normal stomach. - Normal second portion of the duodenum. - No specimens collected. Recommendations : - Transfer patient to another hospital. - The patient has taken no previous anticoagulant or antiplatelet agents and therefore does not require instructions for their resumption. My findings are described in the full procedure note, which is enclosed. If I can be of further assistance, please feel free to contact me at . Sincerely, Keegan Orozco, 08/20/2021 7:36:30 AM This report has been signed electronically.
--- NOTE | 2021-08-20 09:28 | CASEMGMT ---
According to [employer] website, the following tertiary facilities are in network: [facility], [place], [facility], [facility], [facility], [facility], [place], [facility] and .
--- NOTE | 2021-08-20 10:00 | PCM.HP.STD ---
[facility] Date of Admission: 08/20/21 [facility] Narrative LEYDI MAXWELL, is a 56 M who presents with dysphagia. The dysphagia had been ongoing for 1 week. He would have pain with swallowing liquids or solids. Previously, he had a PEG tube due to compression of esophagus from NSCLC, but subsequently removed as the tumor shrunk with chemoradiation. He was then able to eat and drink normally. He underwent an EGD with Dr. Orozco today and was found to have around a 4cm fistula communicating with the mediastinum. The Hospitalist service was contacted for admission. Patient's cancer history from Dr. Davenport' note from 08/11/21: 56-year-old male, smoker till a few months prior to cancer diagnosis with stage IIIB (T2b, N3, M0) non-small cell lung cancer, squamous histology presenting with progressive dysphagia and weight loss secondary to extrinsic compression of the esophagus by extensive pj metastases in the mediastinum. Patient has an indeterminate lesion in the right lobe of the liver benign etiology is favored based on MRI. Due to significant dysphagia and weight loss a PEG tube was placed at [facility] in November 2020. Started concurrent chemoradiation December 31, 2020. Therapy tolerated with expected toxicities including cytopenias, dysphagia, dehydration due to insufficient oral intake, electrolyte abnormalities namely hypokalemia but without grade 3 or 4 toxicities. He developed a transient neuropathy in the upper extremities. Continues to recover from treatment-related toxicities as expected. June 17, 2021 to start 1 year of adjuvant durvalumab. In a randomized phase III trial, over 700 patients with unresectable, stage III NSCLC without progression after at least two cycles of [place]-based chemoradiotherapy were randomly assigned to up to 12 months of the PD-L1 antibody durvalumab every two weeks or placebo in a 2:1 ratio . At a median follow-up of 25 months, durvalumab increased the median PFS (17.2 versus 5.6 months; HR for disease progression or 0.51, 95% CI 0.41-0.63) and OS (HR for 0.68, 95% CI 0.54-0.86) . Subsequent reporting revealed 48-month survival rates of 50 versus 36 percent, and median OS of 48 versus 29 months, with and without durvalumab, respectively . [ N Engl J Med. 2017;377(72):1919. Epub 2016Mar 24; N Engl J Med. 2018;379(24):2342. Epub 2017Apr 10. ] May 2021 treated with high-dose steroids with gradual wean for radiation pneumonitis and improved. July 2021 worsening anemia was noted , evaluation showed no evidence of hemolysis, iron or B12 deficiency. Improved without specific treatment July 2021 reported painful dysphagia with a sensation of food sticking in the epigastrium in July 2021, with weight loss due to diminished oral intake, has been referred to GI as an awaiting endoscopy. July 2021 recurring dyspnea, dry cough, right-sided pleuritic type chest pain, CT scan July 2021 noninformative with persistent though stable right pleural effusion and right-sided postradiation changes. 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 Headache Hypertension Intolerance to heat Lab test negative for COVID-19 virus Liver lesion, right lobe Migraine headache Pelvis fracture (~2015) Pleural effusion Port-A-Cath in place Regional lymph node metastasis present Syncope Weight loss, abnormal Home Medications acetaminophen 500 mg/15 mL oral liquid 500 mg PO ONCE PRN 12/17/20 [History Last Taken Unknown] oxycodone 5 mg/5 mL oral solution 5 mg PO Q4H PRN 12/17/20 [History Last Taken Unknown] gabapentin 300 mg capsule 300 mg PO TID PRN 07/14/21 [History Last Taken Unknown] Allergy/AdvReac Type Severity Reaction Status Date / Time No Known Allergies Allergy Verified 08/20/21 06:09 Family History Mother Diabetes Sister Uterine cancer Surgical History History of shoulder surgery (~1999) PEG (percutaneous endoscopic gastrostomy) status Social History adopted: No housing: house Smoking Status: Former smoker Tobacco: How many years used: 30 second hand exposure: No alcohol intake: never seatbelt use: always do you feel safe at home: Yes ROS ROS Narrative All review of systems were negative except as mentioned above in the history of present illness and the other review of systems. Vital Signs Vital Signs Vital Signs: 08/20/21 06:09 08/20/21 07:31 08/20/21 07:35 Temperature 36.1 C L 38.3 C H Temperature Source Temporal Temporal Pulse Rate 140 H 116 H 117 H Respiratory Rate 16 16 18 Respiratory Pattern Normal Normal Blood Pressure 148/77 H 90/62 98/66 Blood Pressure Mean 100 71 76 Blood Pressure Source Monitor Monitor Monitor Blood Pressure Position Semi-Fowlers Left Lateral Supine Blood Pressure Location Right Arm Right Arm Right Arm Baseline BP 148/77 148/77 Pulse Ox 93 92 91 Oxygen Delivery Method Room Air Room Air Room Air 08/20/21 07:40 08/20/21 07:45 08/20/21 08:00 Temperature Temperature Source Pulse Rate 115 H 113 H 113 H Respiratory Rate 16 16 18 Respiratory Pattern Blood Pressure 101/68 117/72 102/75 Blood Pressure Mean 79 87 84 Blood Pressure Source Monitor Monitor Monitor Blood Pressure Position Supine Semi-Fowlers Semi-Fowlers Blood Pressure Location Right Arm Right Arm Right Arm Baseline BP 148/77 148/77 148/77 Pulse Ox 93 94 92 Oxygen Delivery Method Room Air Room Air Room Air 08/20/21 08:15 08/20/21 08:40 Temperature 38.4 C H Temperature Source Temporal Pulse Rate 111 H Respiratory Rate 18 Respiratory Pattern Normal Blood Pressure 106/67 Blood Pressure Mean 80 Blood Pressure Source Monitor Blood Pressure Position Semi-Fowlers Blood Pressure Location Right Arm Baseline BP 148/77 Pulse Ox 92 Oxygen Delivery Method Room Air Weight Weight: 67 kg Body Mass Index (BMI) 21.2 Physical Exam Const alert Constitutional Narrative: No respiratory distress. No conversational dyspnea. General Appearance: cooperative HEENT normocephalic and head/scalp atraumatic Eyes Eyes Narrative: No icterus Neck no lymphadenopathy Resp normal respiratory effort and no retractions Resp Narrative: Diminished in right base Cardio regular rate, regular rhythm, S1 normal heart sound and S2 normal heart sound GI normal to inspection, nondistended, normoactive bowel sounds, soft to palpation, non-tender and non-distended Extremity normal to inspection Skin no rashes or lesions noted and no wounds Neuro no focal motor deficits Sensorium / Orientation: awake and alert Psych affect normal Assessment & Plan Assessment/Plan (1) Squamous cell carcinoma of right lung: (2) Esophageal fistula: (3) Aspiration pneumonia: QUALIFIERS: Aspiration pneumonia type: unspecified Laterality: right Lung location: lower lobe of lung Qualified Code(s): J69.0 - Pneumonitis due to inhalation of food and vomit PLAN: 1. Esophageal fistula May be due to chemo and radiation N.p.o. Nutrition consult for TPN Requesting transfer to tertiary facility for CT surgery evaluation and recommendation 2. Aspiration pneumonia Secondary to esophageal fistula Given his immunocompromise status with ongoing cancer, will treat him aggressively with Pipracil and/tazobactam Low risk for MRSA at this time but consider adding vancomycin if his condition further deteriorates. 3. Squamous cell carcinoma the right lung Status post chemo and radiation Hold off any additional treatments at this time given the esophageal fistula Patient does have a port in place 4. VTE prophylaxis with enoxaparin 5. COVID-19 vaccination status: Patient has been vaccinated and boosted. [facility] is requesting a Covid test before transfer. 6. CODE STATUS: Addressed with the patient. Patient is unsure at this time. Told patient since he is unsure we would leave him at full CODE STATUS unless he indicates otherwise. Advance care planning: Spent additional 20 minutes discussing with patient about aggressiveness of care and hospice. Patient is unsure at this time. Understandably patient is very overwhelmed as he has this new diagnosis of esophageal fistula where it was not expected for him to have that. He is unsure if he actually does want surgery but he does become recommended. He was asked about just having a PEG tube and just eating. I told him that just having that she still can be at risk for aspiration and if he did not want to have surgery, if it were indicated, then I would not recommend PEG tube for him and just let him eat what I was going make him comfortable. He is not ready for hospice at this time but once again he is just been blindsided with this new diagnosis. Patient encouraged to ask questions as he has had more time to process this. Disposition: Discussed the case with [facility] transfer line. Discussed with the intake person and patient has been accepted under a Dr. Quintero. I have not spoke with any physician. Any transfer is not going to be imminent given the ongoing COVID-19 pandemic. Patient is aware of this. Charges/Coding Visit Charges Inpatient E&M: 74277 Init Hosp L3 Procedures Hospitalists Procedures: [id number] Advncd Care Plan 30 Min
[2021-08-20 10:49] LABS: Absolute Lymphocyte Count 0.17 X10^3/uL (0.83-4.51); Absolute Neutrophil Count 13.4 X10^3/uL (2.0-7.7); Basophil# 0.02 X10^3/uL; Basophil% 0.1 % (0-1); Hematocrit 24.9 % (40-54); Hemoglobin 7.7 g/dL (13.0-16.5); Lymphocyte # 0.17 X10^3/ul (0.83-4.51); Lymphocyte % 1.2 % (19-41); Mean Corp Hgb Conc 30.9 g/dL (32-36); Mean Corpuscular Hgb 30.1 pg (27.0-32.0); Mean Corpuscular Volume 97.3 fL (80-94); Mean Platelet Vol. 8.7 fl (6.2-12.0); Monocyte# 0.93 X10^3/uL; Monocyte% 6.4 % (0-10); NRBC Flagged by Analyzer 0 % (0-5); Neutrophil % 91.7 % (47-70); POSITIVE DIFFERENTIAL YES; Platelet Count 477 K/mm3 (150-450); RBC Distribution Width CV 15.9 % (11.6-14.6); RBC Distribution Width SD 56.8 fl (35.1-43.9); Red Blood Count 2.56 M/mm3 (4.6-6.2); White Blood Count 14.6 K/mm3 (4.4-11.0)
[2021-08-20 10:50] LABS: Differential Indicated SCAN CRITERIA MET
[2021-08-20 10:59] LABS: ALB/GLOB Ratio 0.4 RATIO (0.9-2.4); AST(SGOT) 9 U/L (15-37); Alanine Aminotransfer ALT/SGPT 7 U/L (16-61); Albumin, Serum 1.9 g/dL (3.2-5.0); Alkaline Phosphatase 134 U/L (45-117); Anion Gap 5 (5-15); BUN 28 mg/dL (7-18); BUN/Creat Ratio 42.9 RATIO (10-20); Calcium,Total 9.1 mg/dL (8.5-10.1); Chloride 98 mmol/L (98-107); Creatinine, Serum 0.65 mg/dL (0.70-1.30); EST Glomerular Filtration Rate 134 mL/min (>60); Est Glom Filt Rate - Afr Amer 162 mL/min (>60); Estimated Creatinine Clearance 117.39 ml/min; Globulin 4.5 g/dL (2.2-4.2); Glucose 131 mg/dL (74-106); Protein, Total 6.4 g/dL (6.4-8.2); Sodium Level 134 mmol/L (136-145)
[2021-08-20 11:42] LABS: Platelet Estimate SLT INC (ADEQ)
[2021-08-20] MEDS: Morphine 2 MG/ML Syringe IV ×2 (12:12→15:26)
[2021-08-20] MEDS: 0.9% Normal Saline 1,000 ML 150 ML IV (12:12)
[2021-08-20] MEDS: 0.9% Saline Lock 10 ML Syringe IV ×2 (12:13→18:32)
[2021-08-20] MEDS: Enoxaparin 40 MG/0.4 ML Syringe SC (12:13)
--- NOTE | 2021-08-20 12:25 | RAD_ITS ---
STUDY: X-RAY CHEST REASON FOR EXAM: Male, 56 years old. Pneumonia, patient had EGD this morning, states there is now a hole in esophagus TECHNIQUE: Single AP portable view of the chest. COMPARISON: Comparison is made with prior CT scan of thorax dated 07/26/2021. FINDINGS: A left-sided portacatheter is seen with the tip in the right atrium. Persistent small right pleural effusion with underlying infiltration and/or atelectasis. A small right pleural effusion with underlying infiltration and/or atelectasis. Increased markings are seen in the right perihilar region. If the patient has had prior radiation, this may represent post radiation pneumonitis/fibrosis. Normal size heart. Normal mediastinum and kait. Normal visualized pulmonary arteries. There is atherosclerotic tortuosity of the aortic arch and descending thoracic aorta. There are mild degenerative changes of the visualized thoracic spine. Normal visualized ribs, clavicles, and shoulders. There is no demonstrated abnormality of the visualized soft tissue structures of the upper abdomen. RAD/Chest PA and Lateral IMPRESSION: Pleural parenchymal changes at the right lung base with the findings suggestive of bronchiectasis and possible postradiation fibrosis in the right perihilar region. There has been essentially no change since prior CT scan of thorax dated 07/26/2021. Electronically Signed: Malick Jaeger MD at 12:51 EST ,
[2021-08-20] MEDS: Morphine 4 MG/ML Syringe IV ×2 (18:33→21:27)
[2021-08-20] MEDS: 0.9% Normal Saline 1,000 ML 75 ML IV (21:25)
[2021-08-20] MEDS: DiphenhydrAMINE 50 MG/ML Syringe IV (21:28)
[2021-08-21] MEDS: Morphine 4 MG/ML Syringe IV ×7 (02:47→23:43)
[2021-08-21 04:12] VITALS: BP 131/78; PULSE 82; RESP 16; TEMP 37.4; O2SAT 94
[2021-08-21] MEDS: 0.9% Saline Lock 10 ML Syringe IV ×2 (06:03→06:06)
[2021-08-21 06:16] LABS: Absolute Lymphocyte Count 0.24 X10^3/uL (0.83-4.51); Absolute Neutrophil Count 11.7 X10^3/uL (2.0-7.7); Basophil# 0.01 X10^3/uL; Basophil% 0.1 % (0-1); Eosinophil# 0.02 X10^3/uL; Eosinophils% 0.2 % (0-5); Hematocrit 23.9 % (40-54); Hemoglobin 7.3 g/dL (13.0-16.5); Lymphocyte # 0.24 X10^3/ul (0.83-4.51); Lymphocyte % 1.8 % (19-41); Mean Corp Hgb Conc 30.5 g/dL (32-36); Mean Corpuscular Volume 98.4 fL (80-94); Mean Platelet Vol. 8.6 fl (6.2-12.0); Monocyte% 6.9 % (0-10); NRBC Flagged by Analyzer 0 % (0-5); Neutrophil # 11.72 X10^3/uL (2.7-7.7); Neutrophil % 90.2 % (47-70); POSITIVE DIFFERENTIAL YES; Platelet Count 424 K/mm3 (150-450); RBC Distribution Width CV 16.1 % (11.6-14.6); RBC Distribution Width SD 58.7 fl (35.1-43.9); Red Blood Count 2.43 M/mm3 (4.6-6.2)
[2021-08-21 06:19] LABS: Differential Indicated SCAN CRITERIA MET
[2021-08-21 06:31] LABS: Differential Comment SCANNED; Hypochromasia 2+
[2021-08-21 06:47] LABS: ALB/GLOB Ratio 0.4 RATIO (0.9-2.4); AST(SGOT) 12 U/L (15-37); Alanine Aminotransfer ALT/SGPT 9 U/L (16-61); Albumin, Serum 1.6 g/dL (3.2-5.0); Alkaline Phosphatase 138 U/L (45-117); Anion Gap 5 (5-15); BUN 21 mg/dL (7-18); BUN/Creat Ratio 43.9 RATIO (10-20); Calcium,Total 8.8 mg/dL (8.5-10.1); Chloride 103 mmol/L (98-107); Creatinine, Serum 0.48 mg/dL (0.70-1.30); EST Glomerular Filtration Rate 191 mL/min (>60); Est Glom Filt Rate - Afr Amer 231 mL/min (>60); Estimated Creatinine Clearance 161.82 ml/min; Globulin 4.5 g/dL (2.2-4.2); Glucose 145 mg/dL (74-106); Phosphorus 3.2 mg/dL (2.5-4.9); Potassium 3.7 mmol/L (3.5-5.1); Protein, Total 6.1 g/dL (6.4-8.2); Sodium Level 138 mmol/L (136-145); Triglycerides 109 mg/dL
[2021-08-21 08:00] VITALS: BP 118/62; PULSE 97; RESP 16; TEMP 37; O2SAT 97
[2021-08-21] MEDS: 0.9% Normal Saline 1,000 ML 75 ML IV ×2 (09:36→21:27)
--- NOTE | 2021-08-21 10:54 | PN.HOSP_ITS ---
Subjective Subjective Still with pain. Morphine does not help long enough. Objective Data Objective Data Vital Signs: Vital Signs Temp Pulse Resp BP Pulse Ox 37.0 C 97 16 118/62 97 08/21/21 08:00 08/21/21 08:00 08/21/21 08:00 08/21/21 08:00 08/21/21 08:00 Oxygen Flow Rate (L/min) 2 Oxygen Delivery Method Nasal Cannula Weight: 68.2 kg Body Mass Index (BMI) 21.5 Intake & Output: Intake and Output for Last 24 Hours 08/19/21 08/20/21 08/21/21 23:59 23:59 23:59 Intake Total 1049.17 / 1049.17 1013.75 / 1013.75 Balance 1049.17 / 1049.17 1013.75 / 1013.75 Medical Nutrition Assessment Dietitian: Malnutrition Criteria Met Start: 08/20/21 15:54 Freq: Status: Active Protocol: Document 08/20/21 15:54 HAI (Rec: 08/20/21 15:[address] [facility] [id number]) Nutrition Malnutrition Evidence of Malnutrition Exists Yes Evidenced By Suboptimal Energy Intake ( Severe),Weight Loss (Severe), Physical Changes (Moderate) Clinical Problem Chronic Disease or Condition Related Malnutrition Etiology related to dx of lung cancer since November 2020 and esophageal fistula and inability to consume adequate nutrition to meet est nutritional needs Signs/Symptoms as evidenced by need for TPN d /t strict NPO and 13.3% wt loss x 9 mo - pt with obvious fat/muscle loss in temporal/ orbital areas, clavical and upper body. Status Active Problem Recommendation Dietitian Recommendations/Changes Will order 1L 4.25%/10% Dextrose with electrolytes for day #1 TPN Will order mag, phosphorous and triglycerides Will monitor daily weights Lab / Micro Data Result Diagrams: 08/21/21 06:05 08/21/21 06:05 Labs: Laboratory Results - last 24 hr 08/20/21 10:30: Platelet Estimate SLT INC 08/20/21 10:30: Sodium 134 L, Potassium 4.0, Chloride 98, Carbon Dioxide 31.0, Anion Gap 5, BUN 28 H, Creatinine 0.65 L, Estim Creat Clear Calc 117.39, Est GFR (MDRD) Af Amer 162, Est GFR (MDRD) Non-Af 134, BUN/Creatinine Ratio 42.9 H, Glucose 131 H, Calcium 9.1, Total Bilirubin 0.40, AST 9 L, ALT 7 L, Alkaline Phosphatase 134 H, Total Protein 6.4, Albumin 1.9 L, Globulin 4.5 H, Albumin/Globulin Ratio 0.4 L 08/21/21 06:05: WBC 13.0 H, RBC 2.43 L, Hgb 7.3 L, Hct 23.9 L, MCV 98.4 H, MCH 30.0, MCHC 30.5 L, RDW Std Deviation 58.7 H, RDW Coeff of Nikolas 16.1 H, Plt Count 424, MPV 8.6, Immature Gran % (Auto) 0.800, Neut % (Auto) 90.2 H, Lymph % (Auto) 1.8 L, Mccreary % (Auto) 6.9, Eos % (Auto) 0.2, Baso % (Auto) 0.1, Absolute Neuts (auto) 11.7 H, Absolute Lymphs (auto) 0.24 L, Nucleated RBC % 0, Differential Comment SCANNED, Hypochromasia 2+ 08/21/21 06:05: Sodium 138, Potassium 3.7, Chloride 103, Carbon Dioxide 30.0, Anion Gap 5, BUN 21 H, Creatinine 0.48 L, Estim Creat Clear Calc 161.82, Est GFR (MDRD) Af Amer 231, Est GFR (MDRD) Non-Af 191, BUN/Creatinine Ratio 43.9 H, Glucose 145 H, Calcium 8.8, Phosphorus 3.2, Total Bilirubin 0.40, AST 12 L, ALT 9 L, Alkaline Phosphatase 138 H, Total Protein 6.1 L, Albumin 1.6 L, Globulin 4.5 H, Albumin/Globulin Ratio 0.4 L, Triglycerides 109 Micro: Microbiology 08/20/21 12:15 Nasal Secretion SARS-CoV-2 Antigen (Rapid) - Final Radiography Diagnostic Testing: Radiology Impression Chest X-Ray 08/20/21 12:25 IMPRESSION: Pleural parenchymal changes at the right lung base with the findings suggestive of bronchiectasis and possible postradiation fibrosis in the right perihilar region. There has been essentially no change since prior CT scan of thorax dated 07/26/2021. Electronically Signed: Malick Jaeger MD at 12:51 EST , Physical Exam Const alert and no apparent distress Resp normal respiratory effort, no retractions and no use of accessory muscles Cardio regular rate, regular rhythm, S1 normal heart sound and S2 normal heart sound GI normal to inspection, nondistended, normoactive bowel sounds, soft to palpation, non-tender and non-distended Extremity normal to inspection Assessment & Plan Assessment/Plan (1) Squamous cell carcinoma of right lung: (2) Esophageal fistula: (3) Aspiration pneumonia: QUALIFIERS: Aspiration pneumonia type: unspecified Laterality: r ight Lung location: lower lobe of lung Qualified Code(s): J69.0 - Pneumonitis due to inhalation of food and vomit PLAN: 1. Esophageal fistula May be due to chemo and radiation N.p.o. Nutrition consult for TPN Requesting transfer to tertiary facility for CT surgery evaluation and recommendation 2. Aspiration pneumonia Secondary to esophageal fistula Given his immunocompromise status with ongoing cancer, will treat him aggressively with Pipracil and/tazobactam Low risk for MRSA at this time but consider adding vancomycin if his condition further deteriorates. 3. Squamous cell carcinoma the right lung Status post chemo and radiation Hold off any additional treatments at this time given the esophageal fistula Patient does have a port in place 4. VTE prophylaxis with enoxaparin 5. COVID-19 vaccination status: Patient has been vaccinated and boosted. [facility] is requesting a Covid test before transfer. 6. CODE STATUS: Addressed with the patient. Patient is unsure at this time. Told patient since he is unsure we would leave him at full CODE STATUS unless he indicates otherwise. Disposition: Discussed the case with [facility] transfer line. Discussed with the intake person and patient has been accepted under a Dr. Quintero. I have not spoke with any physician. Any transfer is not going to be imminent given the ongoing COVID-19 pandemic. Patient is aware of this. Advance care planning: Spent additional 60 minutes discussing with the patient. Patient Fornes any that he reached [facility] to [facility] whom he was already established with but hospice services. They are planning on coming out to the hospital to talk with hospice with him. No reports that is not unreason able to get an opinion in regards to potential repair of the fistula. Though I did tell him that if surgery were necessary may be very involved and complicated by his underlying cancer. Charges/Coding Visit Charges Inpatient E&M: 26538 Subs Hosp L2 Procedures Hospitalists Procedures: [id number] Advncd Care Plan 30 Min
[2021-08-21 17:04] VITALS: BP 120/57; PULSE 100; RESP 16; TEMP 37.7; O2SAT 95
[2021-08-21 20:29] VITALS: BP 120/70; PULSE 100; RESP 16; TEMP 37.6; O2SAT 96
[2021-08-21] MEDS: DiphenhydrAMINE 50 MG/ML Syringe IV (23:43)
[2021-08-22 03:09] VITALS: BP 116/66; PULSE 98; RESP 16; TEMP 37.7; O2SAT 96
[2021-08-22] MEDS: Morphine 4 MG/ML Syringe IV ×5 (03:16→17:25)
[2021-08-22] MEDS: 0.9% Saline Lock 10 ML Syringe IV ×2 (06:29→17:27)
[2021-08-22 07:12] LABS: ALB/GLOB Ratio 0.3 RATIO (0.9-2.4); AST(SGOT) 22 U/L (15-37); Alanine Aminotransfer ALT/SGPT 13 U/L (16-61); Albumin, Serum 1.5 g/dL (3.2-5.0); Alkaline Phosphatase 150 U/L (45-117); Anion Gap 5 (5-15); BUN 18 mg/dL (7-18); Calcium,Total 8.3 mg/dL (8.5-10.1); Chloride 102 mmol/L (98-107); Creatinine, Serum 0.43 mg/dL (0.70-1.30); EST Glomerular Filtration Rate 216 mL/min (>60); Est Glom Filt Rate - Afr Amer 262 mL/min (>60); Estimated Creatinine Clearance 181.43 ml/min; Globulin 4.4 g/dL (2.2-4.2); Glucose 126 mg/dL (74-106); Phosphorus 3.4 mg/dL (2.5-4.9); Potassium 3.6 mmol/L (3.5-5.1); Protein, Total 5.9 g/dL (6.4-8.2); Sodium Level 136 mmol/L (136-145)
[2021-08-22 07:44] LABS: MG Sendout 2.1 mg/dL (1.6-2.3)
[2021-08-22 08:00] VITALS: O2SAT 87
--- NOTE | 2021-08-22 08:16 | CPS ---
pt placed back on 2 lpm. Saturation to 93%
[2021-08-22 09:00] VITALS: BP 109/64; PULSE 85; RESP 16; TEMP 37; O2SAT 96
[2021-08-22] MEDS: 0.9% Normal Saline 1,000 ML 75 ML IV (09:43)
--- NOTE | 2021-08-22 11:09 | PCM.PN.HOSP ---
Subjective Subjective Chest pain is better but still about 8 out of 10 at times. Objective Data Objective Data Vital Signs: Vital Signs Temp Pulse Resp BP Pulse Ox 37.0 C 85 16 109/64 96 08/22/21 09:00 08/22/21 09:00 08/22/21 09:00 08/22/21 09:00 08/22/21 09:00 Oxygen Flow Rate (L/min) 2 Oxygen Delivery Method Nasal Cannula Weight: 68.5 kg Body Mass Index (BMI) 21.5 Intake & Output: Intake and Output for Last 24 Hours 08/20/21 08/21/21 08/22/21 23:59 23:59 23:59 Intake Total 1049.17 / 1049.17 2945.10 / 2945.10 970 / 970 Balance 1049.17 / 1049.17 2945.10 / 2945.10 970 / 970 Medical Nutrition Assessment Dietitian: Malnutrition Criteria Met Start: 08/20/21 15:54 Freq: Status: Active Protocol: Document 08/22/21 10:17 HAI (Rec: 08/22/21 10:17 HAI [id number]) Nutrition Malnutrition Evidence of Malnutrition Exists Yes Malnutrition (severe): Chronic Evidenced By Suboptimal Energy Intake ( Severe),Weight Loss (Severe), Physical Changes (Moderate) Clinical Problem Chronic Disease or Condition Related Malnutrition Etiology related to dx of lung cancer since November 2020 and esophageal fistula and inability to consume adequate nutrition to meet est nutritional needs Signs/Symptoms as evidenced by need for TPN d /t strict NPO and 13.3% wt loss x 9 mo - pt with obvious fat/muscle loss in temporal/ orbital areas, clavical and upper body. Status Active Problem Recommendation Dietitian Recommendations/Changes Will continue 2L 4.25%/10% Dextrose with electrolytes for day #3 TPN - plan for 250 ml 20% lipids 08/23/21 Will order labs as available Will monitor daily weights Lab / Micro Data Result Diagrams: 08/21/21 06:05 08/22/21 06:10 Labs: Laboratory Results - last 24 hr 08/21/21 06:05: Magnesium 2.1 08/22/21 06:10: Sodium 136, Potassium 3.6, Chloride 102, Carbon Dioxide 29.0, Anion Gap 5, BUN 18, Creatinine 0.43 L, Estim Creat Clear Calc 181.43, Est GFR (MDRD) Af Amer 262, Est GFR (MDRD) Non-Af 216, BUN/Creatinine Ratio 42.0 H, Glucose 126 H, Calcium 8.3 L, Phosphorus 3.4, Total Bilirubin 0.50, AST 22, ALT 13 L, Alkaline Phosphatase 150 H, Total Protein 5.9 L, Albumin 1.5 L, Globulin 4.4 H, Albumin/Globulin Ratio 0.3 L Micro: Microbiology 08/20/21 12:15 Nasal Secretion SARS-CoV-2 Antigen (Rapid) - Final Physical Exam Const alert Resp normal respiratory effort, no retractions and no use of accessory muscles Resp Narrative: Diminished in right base Cardio regular rate, regular rhythm, S1 normal heart sound and S2 normal heart sound GI normal to inspection, nondistended, normoactive bowel sounds, soft to palpation, non-tender and non-distended Extremity normal to inspection Neuro Sensorium / Orientation: awake and alert Psych affect normal Assessment & Plan Assessment/Plan (1) Squamous cell carcinoma of right lung: (2) Esophageal fistula: (3) Aspiration pneumonia: QUALIFIERS: Aspiration pneumonia type: unspecified Laterality: right Lung location: lower lobe of lung Qualified Code(s): J69.0 - Pneumonitis due to inhalation of food and vomit PLAN: 1. Esophageal fistula May be due to chemo and radiation N.p.o. Nutrition following for TPN Requesting transfer to tertiary facility for CT surgery evaluation and recommendation 2. Aspiration pneumonia Secondary to esophageal fistula Given his immunocompromise status with ongoing cancer, will treat him aggressively with Pipracil and/tazobactam Low risk for MRSA at this time but consider adding vancomycin if his condition further deteriorates. 3. Squamous cell carcinoma the right lung Status post chemo and radiation Hold off any additional treatments at this time given the esophageal fistula Patient does have a port in place 4. VTE prophylaxis with enoxaparin 5. COVID-19 vaccination status: Patient has been vaccinated and boosted. [facility] is requesting a Covid test before transfer. 6. CODE STATUS: Addressed with the patient. Patient is unsure at this time. Told patient since he is unsure we would leave him at full CODE STATUS unless he indicates otherwise. Disposition: Discussed the case with [facility] transfer line. Discussed with the intake person and patient has been accepted under a Dr. Quintero. I have not spoken with any physician. Any transfer is not going to be imminent given the ongoing COVID-19 pandemic. Patient is aware of this. Patient contacted hospice and they were supposed to come in sometime this weekend to talk with him further. He is unsure if he is ready for hospice yet but does seem open to it. He still would like to go to [facility] to see what the recommendations would be from cardiothoracic surgery as no delusions that there would be a definitive treatment for this. Charges/Coding Visit Charges Inpatient E&M: 71284 Subs Hosp L2
[2021-08-22] MEDS: Lidocaine 5% Patch 1 PATCH TOPICAL (11:59)
--- NOTE | 2021-08-22 15:59 | PCM.DC.SUM ---
Providers Date of Admission: 08/20/21 Primary Care Physician: Kesha Primary Care Phys Consultations 08/20/21 11:51 Consult: Gastroenterology Routine Consulting Provider: Kayla Gastroenterche Reason for Consult: esophageal fist EMERGENT Consult: No MD Notified: Yes Date Notified: 08/20/21 Time Notified: 10:12 Method of Notification: Verbal Diagnosis Discharge Diagnosis (1) Squamous cell carcinoma of right lung: Status: Acute Code(s): C34.91 - Malignant neoplasm of unspecified part of right bronchus or lung (2) Esophageal fistula: Status: Acute Code(s): K22.89 - Other specified disease of esophagus (3) Aspiration pneumonia: Status: Acute Code(s): J69.0 - Pneumonitis due to inhalation of food and vomit Qualifiers: Aspiration pneumonia type: unspecified Laterality: right Lung location: lower lobe of lung Qualified Code(s): J69.0 - Pneumonitis due to inhalation of food and vomit Medications at Discharge Home Medications acetaminophen 500 mg/15 mL oral liquid 500 mg PO ONCE PRN 12/17/20 oxycodone 5 mg/5 mL oral solution 5 mg PO Q4H PRN 12/17/20 gabapentin 300 mg capsule 300 mg PO TID PRN 07/14/21 Hospital Course Operations None Procedures None Summary of Care Provided Minutes Spent on Discharge: 32 Hospital Course: Is a 48-year-old male presents after finding of an AV fistula in his esophagus. Patient had endoscopy for dysphagia. Patient has a history of a non-small cell lung cancer and had issues with dysphagia before due to compression from cancer. He had a PEG tube at one point but that was subsequent removed. He received chemo and radiation. He underwent endoscopy on the fourth and was found to have a fistula measuring roughly around 4 cm. Is described as being cannulized to his mediastinum. Patient was admitted and then [facility] was contacted as patient previously had work-up performed there and had been admitted there previously. The reason for transfer was for cardiothoracic surgery evaluation. Is unclear if this is even amenable to surgery which the patient understands that this may not be. If it is not he seems inclined to proceed with hospice services that were to become necessary. While he was in the hospital, he was put on Pipracil and/tazobactam. He was made n.p.o. and started on TPN. His course was rather uncomplicated though he did have some issues in regards to pain in his chest from where the fistula was. He was optimized with pain medication with fentanyl patch as well as as needed morphine. Medical Records Data Medical Nutrition Assessment Dietitian: Malnutrition Criteria Met Start: 08/20/21 15:54 Freq: Status: Active Protocol: Document 08/22/21 10:17 HAI (Rec: 08/22/21 10:17 [facility] [id number]) Nutrition Malnutrition Evidence of Malnutrition Exists Yes Malnutrition (severe): Chronic Evidenced By Suboptimal Energy Intake ( Severe),Weight Loss (Severe), Physical Changes (Moderate) Clinical Problem Chronic Disease or Condition Related Malnutrition Etiology related to dx of lung cancer since November 2020 and esophageal fistula and inability to consume adequate nutrition to meet est nutritional needs Signs/Symptoms as evidenced by need for TPN d /t strict NPO and 13.3% wt loss x 9 mo - pt with obvious fat/muscle loss in temporal/ orbital areas, clavical and upper body. Status Active Problem Recommendation Dietitian Recommendations/Changes Will continue 2L 4.25%/10% Dextrose with electrolytes for day #3 TPN - plan for 250 ml 20% lipids 08/23/21 Will order labs as available Will monitor daily weights Weight / BMI Weight Weight: 68.5 kg Body Mass Index (BMI) 21.5 ABG / Lab / Microbiology Data Result Diagrams: 08/21/21 06:05 08/22/21 06:10 Laboratory: Laboratory Results - last 24 hr 08/21/21 06:05: Magnesium 2.1 08/22/21 06:10: Sodium 136, Potassium 3.6, Chloride 102, Carbon Dioxide 29.0, Anion Gap 5, BUN 18, Creatinine 0.43 L, Estim Creat Clear Calc 181.43, Est GFR (MDRD) Af Amer 262, Est GFR (MDRD) Non-Af 216, BUN/Creatinine Ratio 42.0 H, Glucose 126 H, Calcium 8.3 L, Phosphorus 3.4, Total Bilirubin 0.50, AST 22, ALT 13 L, Alkaline Phosphatase 150 H, Total Protein 5.9 L, Albumin 1.5 L, Globulin 4.4 H, Albumin/Globulin Ratio 0.3 L Microbiology: Microbiology 08/20/21 12:15 Nasal Secretion SARS-CoV-2 Antigen (Rapid) - Final Meaningful Use Info Meaningful Use Diagnoses (Choose all that apply): None applicable Discharge Plan Admission Admit Date/Time: 08/20/21 09:34 Primary Reason for Your Visit: esophageal fistula Attending Provider: Keegan Orozco Primary Care Provider: Care Physician,No Primary Discharge Orders/Prescriptions Prescriptions: No Action oxycodone 5 mg/5 mL solution 5 mg PO Q4H PRN (Reason: Pain) RF: 0 acetaminophen 500 mg/15 mL liquid 500 mg PO ONCE PRN (Reason: Pain) RF: 0 gabapentin [Neurontin] 300 mg capsule 300 mg PO TID PRN (Reason: Pain) RF: 0 Referrals / Follow Up: Care Physician,No Primary [Primary Care Provider] - Disposition Disposition (needs filled in before D/C Order can be placed): Acute Care Hospital Charges/Coding Visit Charges Inpatient E&M: 39801 Disch Hosp
--- NOTE | 2021-08-22 16:39 | NURSING ---
Report called to [facility] 17th floor. Patient aware transport will be here at 1730.
[2021-08-22 16:55] VITALS: BP 109/64; PULSE 85; RESP 18; TEMP 37; O2SAT 96
[2021-08-22] MEDS: DiphenhydrAMINE 50 MG/ML Syringe IV (17:26)
--- NOTE | 2021-08-23 09:09 | CASEMGMT ---
Social Work Note RANJITH received message from Nicole, Patient Liaison, at [facility] stating pt was active with Palliative Care but was interested in the transition to Hospice. RANJITH reviewed chart, pt transferred to [facility]. RANJITH placed a call back to Nicole and updated her that pt was transferred. 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
[2021-08-24 08:32] LABS: MG Sendout 1.9 mg/dL (1.6-2.3)
== END 2021-08-22 19:01 | disposition short-term general hospital (02) | DRG 177 ==
LOC: EN 09:44 → MS3 09:45
PROVIDERS: Visit Provider Internal Medicine Gastroenterology
PROC: 0DJ08ZZ Inspection of Upper Intestinal Tract, Via Natural or Artificial Opening Endoscopic (ICD-10-PCS; CPT 43235; principal; 2021-08-20 06:55)
DX: J69.0 Pneumonitis due to inhalation of food and vomit (principal); E43 Unspecified severe protein-calorie malnutrition; D84.9 Immunodeficiency, unspecified; C77.9 Secondary and unspecified malignant neoplasm of lymph node, unspecified; C34.91 Malignant neoplasm of unspecified part of right bronchus or lung; Z93.1 Gastrostomy status; K22.2 Esophageal obstruction; I10 Essential (primary) hypertension; G62.9 Polyneuropathy, unspecified; K22.89 Other specified disease of esophagus; R13.10 Dysphagia, unspecified; Z87.891 Personal history of nicotine dependence; Z92.3 Personal history of irradiation; Z92.21 Personal history of antineoplastic chemotherapy; Z68.21 Body mass index [BMI] 21.0-21.9, adult
CPT/HCPCS: 36415; 71046; 80053; 83735; 84100; 84478; 85025; 87426; 93005; 97802; 97803; 99406; J7030; J7120; A4216